=== PATIENT | female | born 1960 | race Caucasian/White ===

== ENCOUNTER 2021-01-09 14:36 | Inpatient (IN) | payer BC ==
[~2021-01-09] VITALS: Ht 165.1 cm; Wt 72.6 kg
[2021-01-09] MEDS ORDERED: ZOVIRAX400 MG PO (14:54)
[2021-01-09] MEDS ORDERED: ENALAPRIL MALE2.5 MG PO (14:54)
== END 2021-02-01 17:19 | disposition home health service (06) | DRG 683 ==
LOC: ER 14:36 → MEDI 01-10 13:08 → SURH 01-10 13:08 → MEDJ 01-10 13:08 → SURH 01-10 16:27 → O/R 01-12 09:51 → SURH 01-12 09:54 → MEDI 01-15 16:45
PROVIDERS: ADMIT Internal Medicine; ATTEND Internal Medicine
PROC: 30233N1 Transfusion of Nonautologous Red Blood Cells into Peripheral Vein, Percutaneous Approach (ICD-10-PCS; 2021-01-10)
PROC: 3E0F7SF Introduction of Other Gas into Respiratory Tract, Via Natural or Artificial Opening (ICD-10-PCS; 2021-01-14)
PROC: 02H633Z Insertion of Infusion Device into Right Atrium, Percutaneous Approach (ICD-10-PCS; principal; 2021-01-15)
DX: N17.8 Other acute kidney failure (principal); E87.1 Hypo-osmolality and hyponatremia; C79.51 Secondary malignant neoplasm of bone; C34.91 Malignant neoplasm of unspecified part of right bronchus or lung; K92.2 Gastrointestinal hemorrhage, unspecified; C79.31 Secondary malignant neoplasm of brain; E86.0 Dehydration; E83.52 Hypercalcemia; D64.9 Anemia, unspecified; Z20.822 Contact with and (suspected) exposure to COVID-19
CPT/HCPCS: 70544